=== PATIENT | male | born 1945 | race Caucasian/White ===

== ENCOUNTER → 2017-09-08 | Outpatient (CLI) | payer OTHER, MEDICARE | LOC: BMCIMAGING 15:37 | PROVIDERS: ATTEND Podiatrist Foot & Ankle Surgery | DX: M79.671 Pain in right foot (principal); M25.871 Other specified joint disorders, right ankle and foot; M25.872 Other specified joint disorders, left ankle and foot ==

== ENCOUNTER → 2018-10-18 | Outpatient (CLI) | payer OTHER, MEDICARE | LOC: FIMAGING 10:41 | PROVIDERS: ATTEND Orthopaedic Surgery | DX: Z01.818 Encounter for other preprocedural examination (principal); M17.12 Unilateral primary osteoarthritis, left knee ==

== ENCOUNTER 2018-11-06 08:42 | Observation (INO) | payer OTHER, MEDICARE ==
--- NOTE | 2018-11-06 06:01 | PDIAF ---
- Diagnosis Diagnosis: left knee djd Code Status: Full Code - Medication Management Discharge Medications: electronically signed and located in the Home Medication List. - Orders Services needed: Home Care, Physical Therapy Home Care Face to Face: I certify that this patient was under my care and that I had the required gvzh-fp-[id number] encounter meeting the encounter requirements on the discharge day. My findings support the fact that the patient is homebound as defined in Home Care Face to Face Continued: CMS Chapter 7 Medicare Benefits Manual 30.1.1 , The condition of the patient is such that there exists a normal inability to leave home and consequently, leaving home would require a considerable and taxing effort. Diet Recommendation: no restrictions on diet Diet Texture: Regular Texture Diet Additional Instructions: TOTAL JOINT ARTHROPLASTY DISCHARGE INSTRUCTIONS 1. Your surgeon follows the [facility] protocol for reducing your risk of DVT (blood clots) following surgery. Medication will be ordered to prevent blood clots. A sudden increase in calf pain and/or swelling could indicate a blood clot in your leg. If this occurs, please call your surgeon or his/her camp assistant. An ultrasound of the leg may be necessary to diagnose a blood clot. If you have conditions that make you a higher risk for blood clots, your surgeon may use more aggressive ways to prevent them. Notify your surgeon if you think you are a high risk for blood clots. 2. Wear your white surgical stockings (GIANA hose) for 2 weeks. This decreases your swelling and may help prevent blood clots. It is ok to remove GIANA hose at night time to give your legs a break. 3. Swelling and bruising in the surgical leg is common. If you feel that it is excessive, please notify your surgeon. 4. Elevate your surgical leg with the ankle above the hip several times every day. Please keep the leg straight when you elevate by putting pillows under your foot. Do not put pillows under your knee. This will make being able to fully straighten more difficult. This is uncomfortable, but try to do it as much as possible. 5. For total knee replacements use compressive wrap on your knee for 3-5 days after surgery, then you can discontinue it. 6. Use a walker or crutches for 1-2 weeks. Progress your weight-bearing as tolerated. You may start to use a cane when you feel stable and safe. 7. You will receive physical therapy instructions in the hospital. Continue those exercises at home. There are additional exercises in the total joint booklet you were given before surgery. Outpatient physical therapy will begin 7- 10 days after surgery. Please schedule this in advance. 8. Use ice on your knee at least 3-5 times every day for 30 minutes. This helps reduce pain and swelling. Also use it at night before falling asleep. 9. Leave your surgical dressing in place for 2 weeks. Your dressing is water resistant, but not waterproof. Cover it with Saran Wrap or Oqzbz-q-Vpff before showering. You may shower as soon as you feel safe entering a shower. If you notice bleeding from your incision 2 or 3 days after surgery, please notify your surgeon. 10. Due to narcotics, decreased activity and altered diet, most patients experience constipation after surgery. Use pwjo-fqb-hzuyrys stool softeners while you are on narcotics. 11. You may drive a car when you are comfortable bearing weight, have good muscular control of your leg and are off narcotics. This usually occurs 2-4 weeks after surgery, depending on which leg was operated on. 12. If there are questions not addressed here, please refer the [facility] book given for more information. If you still have questions, please contact your surgeon s office. 13. If you have a life-threatening emergency, please call 911 and go to the emergency room immediately. For non-life threatening emergencies, please call your physicians office for advice before going to the emergency room. - Follow Up Care Current Providers and Referrals: Marlene Mendoza MD [Primary Care Provider] - Mac Fitzpatrick MD [Medical Doctor] -
--- NOTE | 2018-11-06 06:01 | PDHPUP ---
History & Physical Update H&P update statement: This history and physical update is based on an assessment of the patient which was completed after admission or registration (within 24 hours), but prior to the surgery/procedure. H&P update: no change in patient's condition since H&P completed
[~2018-11-06 08:42] MED LIST: ROPIVACAINE 0.2% 80 MG, EPINEPHrine 0.2 MG, KETOROLAC TROMETHAMINE 30 MG in SYRINGE 0 ML IU ONE; TRANEXAMIC ACID 1,000 MG in NS 100 ML IV ONE
[2018-11-06] MEDS ORDERED: FAMOTIDINE 20 MG TAB PO ONE (09:03)
[2018-11-06] MEDS ORDERED: ACETAMINOPHEN 325 MG TAB PO ONE (09:03)
[2018-11-06] MEDS ORDERED: ceFAZolin 2 GM/DEXTROSE 100 ML IV ONE (09:03)
[2018-11-06] MEDS ORDERED: LR 1,000 ML IV ONE (09:03)
[2018-11-06] MEDS ORDERED: LIDOCAINE 1% 2 ML INJ ID PRN (09:03)
[2018-11-06] MEDS ORDERED: CALCIUM CHLORIDE 1 GM/10 ML INJ ONE (09:51)
[2018-11-06] MEDS ORDERED: THROMBIN (BOVINE) 5,000 UNIT VIAL TP ONE (09:51)
[2018-11-06] MEDS ORDERED: ceFAZolin 1 GM/5 ML SYR ONE (09:52)
[2018-11-06] MEDS ORDERED: MIDAZOLAM 2 MG/2 ML VIAL IVP ONE (10:25)
[2018-11-06] MEDS ORDERED: MIDAZOLAM 2 MG/2 ML VIAL ONE (10:26)
--- NOTE | 2018-11-06 10:26 | PDANEPAE ---
ANE Past Medical History - Cardiovascular History Hx Hypertension: No Hx Arrhythmias: No Hx Chest Pain: No Hx Coronary Artery / Peripheral Vascular Disease: No Hx CHF / Valvular Disease: No Hx Palpitations: No - Pulmonary History Hx COPD: No Hx Asthma/Reactive Airway Disease: No Hx Recent Upper Respiratory Infection: No Hx Oxygen in Use at Home: No Hx Sleep Apnea: Yes Sleep Apnea Screening Result - Last Documented: Negative - Neurologic History Hx Cerebrovascular Accident: No Hx Seizures: No Hx Dementia: No - Endocrine History Hx Diabetes: No - Renal History Hx Renal Disorders: No - Liver History Hx Hepatic Disorders: No - Neurological & Psychiatric Hx Hx Neurological and Psychiatric Disorders: No - Cancer History Hx Cancer: No - Congenital Disorder History Hx Congenital Disorders: No - GI History Hx Gastrointestinal Disorders: No - Other Health History Other Health History: none - Chronic Pain History Chronic Pain: Yes (left knee pain) - Surgical History Prior Surgeries: 1974 left knee cartiledge removed. 1963 left ankle surgery in [facility] Review of Systems Review of Systems: - Exercise capacity METS (RN): 4 METS ANE Patient History - Allergies Allergies/Adverse Reactions: morphine Allergy (Verified 11/06/18 09:29) Fever - Home Medications Home Medications: Herbals/Supplements -Info Only 1 ea PO DAILY 11/06/18 [Last Taken Unknown] - NPO status NPO Since - Liquids (Date): 11/06/18 NPO Since - Liquids (Time): 04:30 NPO Since - Solids (Date): 11/06/18 NPO Since - Solids (Time): 04:30 - Smoking Hx Smoking Status: Former smoker - Family Anes Hx Family Hx Anesthesia Complications: none ANE Labs/Vital Signs - Vital Signs Blood Pressure: 137/77 Heart Rate: 65 Respiratory Rate: 18 O2 Sat (%): 93 Height: 172.72 cm Weight: 79.379 kg ANE Physical Exam - Airway Neck exam: FROM Mallampati Score: Class 1 Mouth exam: normal dental/mouth exam - Pulmonary Pulmonary: no respiratory distress - Cardiovascular Cardiovascular: regular rate and rhythym - ASA Status ASA Status: I ANE Anesthesia Plan Anesthesia Plan: GA w LMA, spinal
[2018-11-06] MEDS ORDERED: PROPOFOL/EMULSION 500 MG/50 ML BOTTLE IV ONE (10:34)
[2018-11-06] MEDS ORDERED: BUPIVACAINE/DEXTROSE 7.5MG/ML 2 ML SPINAL AMP SP ONE (10:34)
[2018-11-06] MEDS ORDERED: LIDOCAINE 2% 5 ML SDV ONE (10:34)
[2018-11-06] MEDS ORDERED: fentaNYL 100 MCG/2 ML INJ ONE ×3 (11:30→12:58)
--- NOTE | 2018-11-06 12:29 | POSTOPPROG ---
Post Op Note Date of Operation: 11/06/18 Surgeon: Mac Fitzpatrick Sheet Metal Apprentice: Bipin Anesthesiologist: Monica Anesthesia: Spinal Pre-op Diagnosis: Left knee OA Post-op Diagnosis: Left knee OA Indication: Left knee OA Procedure: Left total knee arthroplasty, BLAS assist Findings: Left knee OA Inf/Abcess present in the surg proc area at time of surgery?: No Depth: Deep Incisional (Fascial) EBL: 100-500
[2018-11-06] MEDS ORDERED: ONDANSETRON 4 MG/2 ML VIAL IVP PRN ×2 (12:37→13:27)
[2018-11-06] MEDS ORDERED: PROMETHAZINE HCL 25 MG SUPPR PR PRN (12:37)
[2018-11-06] MEDS ORDERED: ONDANSETRON DISINTEGRATING 4 MG TAB PO PRN (12:37)
[2018-11-06] MEDS ORDERED: PROMETHAZINE HCL 25 MG/ML INJ IVP PRN (12:37)
[2018-11-06] MEDS ORDERED: DIPHENOXYLATE/ATROPINE LOMOTIL 1 TAB PO PRN (12:37)
[2018-11-06] MEDS ORDERED: LACTULOSE 20 GM/30 ML UDCUP PO PRN (12:37)
[2018-11-06] MEDS ORDERED: diphenhydrAMINE 25 MG CAP PO PRN (12:37)
[2018-11-06] MEDS ORDERED: BISACODYL 10 MG SUPP PR PRN (12:37)
[2018-11-06] MEDS ORDERED: TEMAZEPAM 15 MG CAP PO PRN (12:37)
[2018-11-06] MEDS ORDERED: MAGNESIUM HYDROXIDE 30 ML UDCUP PO PRN (12:37)
[2018-11-06] MEDS ORDERED: POLYETHYLENE GLYCOL 3350 17 GM PKT PO PRN (12:37)
[2018-11-06] MEDS ORDERED: METOCLOPRAMIDE 10 MG/2 ML VIAL IVP PRN (12:37)
[2018-11-06] MEDS: fentaNYL 100 MCG/2 ML INJ IVP PRN ×4 (12:44→13:30)
[2018-11-06] MEDS ORDERED: ROPIVACAINE HCL 150 MG/30 ML INJ ONE (12:45)
[2018-11-06] MEDS ORDERED: LR 1,000 ML IV SCH (13:00)
[2018-11-06] MEDS ORDERED: HYDROmorphONE/DILAUDID 1 MG/ML INJ IVP PRN (13:27)
[2018-11-06] MEDS ORDERED: NALOXONE HCL 0.4 MG/ML INJ IVP PRN (13:27)
--- NOTE | 2018-11-06 13:27 | POSTANESTH ---
Post Anesthetic Evaluation Cardiovascular Status: Normal, Stable Respiratory Status: Normal, Stable Level of Consciousness/Mental Status: Can Participate in Eval Pain Control: Adequate, Prn Tx Ordered Nausea/Vomiting Control: Adequate, Prn Tx Ordered Complications Possibly Related to Anesthesia: None Noted
[2018-11-06] MEDS ORDERED: ceFAZolin 2 GM/DEXTROSE 100 ML IV SCH (14:00)
[2018-11-06] MEDS ORDERED: TRANEXAMIC ACID 650 MG TAB PO SCH (14:00)
[2018-11-06] MEDS: CYCLOBENZAPRINE 10 MG TAB PO PRN (14:23)
[2018-11-06] MEDS: oxyCODONE IR 5 MG TAB PO PRN ×3 (14:23→21:26)
--- NOTE | 2018-11-06 16:03 | SOAPPROG ---
MARCIAL Progress Note Assessment/Plan: Assessment: 73 year old male s/p left TKA -procedure earlier today Doing well x-rays look good Plan: Begin d/c planning- pt hoping to go home tomorrow, will have support of his . He would like home PT Continue oral pain medication Continue VTE ppx - SCDs, GIANA thao, aspirin 325 mg Continue PT/OT efforts - felt a little dizzy during PT, but has resolved Change dressing tomorrow Follow up with Dr. Fitzpatrick in approximately 2 weeks Subjective: Patient states he is doing well, the oxycodone is making the pain tolerable. He is hoping to go tomorrow and will have the support of his family. He would like to get set up with home PT. He denies SOB, CP, fever chills. No major complaints or concerns. Objective: Vital Signs Temp Pulse Resp BP Pulse Ox 36.7 C 73 16 131/72 H 93 11/06/18 15:23 11/06/18 15:23 11/06/18 15:23 11/06/18 15:23 11/06/18 15:23 11/05/18 11/06/18 11/07/18 05:59 05:59 05:59 Intake Total 1100 Output Total 150 Balance 950 Patient resting comfortably in bed, no acute distress. LLE: Wound dressings are clean, dry and intact. Lower leg compartments are soft and nontender. Negative Homans sign bilaterally. He can actively DF and PF his left foot and great toe against resistance. Grossly NVI distally ICD10 Worksheet Patient Problems: Problems Problem Status Onset Unilateral primary osteoarthritis, left knee Acute - ICD10 Problem Qualifiers (1) Unilateral primary osteoarthritis, left knee
[2018-11-06] MEDS: TRANEXAMIC ACID 650 MG TAB PO SCH (18:26)
[2018-11-06] MEDS: ACETAMINOPHEN 325 MG TAB PO SCH (18:26)
[2018-11-06] MEDS: ceFAZolin 2 GM/DEXTROSE 100 ML IV SCH (18:27)
[2018-11-06] MEDS: FAMOTIDINE 20 MG TAB PO SCH (20:59)
[2018-11-06] MEDS: SENNOSIDES/DOCUSATE SODIUM TAB PO SCH (20:59)
[2018-11-06] MEDS: ASPIRIN 325 MG TAB PO SCH (20:59)
[2018-11-07] MEDS: TRANEXAMIC ACID 650 MG TAB PO SCH ×2 (01:40→10:13)
[2018-11-07] MEDS: ACETAMINOPHEN 325 MG TAB PO SCH ×2 (01:41→10:20)
[2018-11-07] MEDS: ceFAZolin 2 GM/DEXTROSE 100 ML IV SCH (01:47)
[2018-11-07] MEDS: oxyCODONE IR 5 MG TAB PO PRN ×2 (01:48→10:20)
[2018-11-07] MEDS: CYCLOBENZAPRINE 10 MG TAB PO PRN (01:48)
--- NOTE | 2018-11-07 06:44 | PDIAF ---
- Diagnosis Diagnosis: left knee djd Code Status: Full Code - Medication Management Discharge Medications: electronically signed and located in the Home Medication List. - Orders Services needed: Home Care, Physical Therapy Home Care Face to Face: I certify that this patient was under my care and that I had the required hbvj-[id number] encounter meeting the encounter requirements on the discharge day. My findings support the fact that the patient is homebound as defined in Home Care Face to Face Continued: CMS Chapter 7 Medicare Benefits Manual 30.1.1 , The condition of the patient is such that there exists a normal inability to leave home and consequently, leaving home would require a considerable and taxing effort. Diet Recommendation: no restrictions on diet Diet Texture: Regular Texture Diet Additional Instructions: TOTAL JOINT ARTHROPLASTY DISCHARGE INSTRUCTIONS 1. Your surgeon follows the [facility] protocol for reducing your risk of DVT (blood clots) following surgery. Medication will be ordered to prevent blood clots. A sudden increase in calf pain and/or swelling could indicate a blood clot in your leg. If this occurs, please call your surgeon or his/her procurement assistant. An ultrasound of the leg may be necessary to diagnose a blood clot. If you have conditions that make you a higher risk for blood clots, your surgeon may use more aggressive ways to prevent them. Notify your surgeon if you think you are a high risk for blood clots. 2. Wear your white surgical stockings (GIANA hose) for 2 weeks. This decreases your swelling and may help prevent blood clots. It is ok to remove GIANA hose at night time to give your legs a break. 3. Swelling and bruising in the surgical leg is common. If you feel that it is excessive, please notify your surgeon. 4. Elevate your surgical leg with the ankle above the hip several times every day. Please keep the leg straight when you elevate by putting pillows under your foot. Do not put pillows under your knee. This will make being able to fully straighten more difficult. This is uncomfortable, but try to do it as much as possible. 5. For total knee replacements use compressive wrap on your knee for 3-5 days after surgery, then you can discontinue it. 6. Use a walker or crutches for 1-2 weeks. Progress your weight-bearing as tolerated. You may start to use a cane when you feel stable and safe. 7. You will receive physical therapy instructions in the hospital. Continue those exercises at home. There are additional exercises in the total joint booklet you were given before surgery. Outpatient physical therapy will begin 7- 10 days after surgery. Please schedule this in advance. 8. Use ice on your knee at least 3-5 times every day for 30 minutes. This helps reduce pain and swelling. Also use it at night before falling asleep. 9. Leave your surgical dressing in place for 2 weeks. Your dressing is water resistant, but not waterproof. Cover it with Saran Wrap or Ppkrn-b-Gqve before showering. You may shower as soon as you feel safe entering a shower. If you notice bleeding from your incision 2 or 3 days after surgery, please notify your surgeon. 10. Due to narcotics, decreased activity and altered diet, most patients experience constipation after surgery. Use fmvc-lkk-kjnzody stool softeners while you are on narcotics. 11. You may drive a car when you are comfortable bearing weight, have good muscular control of your leg and are off narcotics. This usually occurs 2-4 weeks after surgery, depending on which leg was operated on. 12. If there are questions not addressed here, please refer the [facility] book given for more information. If you still have questions, please contact your surgeon s office. 13. If you have a life-threatening emergency, please call 911 and go to the emergency room immediately. For non-life threatening emergencies, please call your physicians office for advice before going to the emergency room. - Follow Up Care Current Providers and Referrals: Marlene Mendoza MD [Primary Care Provider] - Mac Fitzpatrick MD [Medical Doctor] -
--- NOTE | 2018-11-07 06:51 | GOP ---
[f rep st] OPERATIVE REPORT DATE OF OPERATION: SURGEON: Mac Fitzpatrick MD PRECISION MECHANICAL INSTRUMENT MAKER: Rajat Voss, DEWATERING FILTERING SUPERVISOR, FISH ROD MAKER, surgical technologist was medical necessity for the entirety of t he case. PREOPERATIVE DIAGNOSIS: Left knee degenerative joint disease. POSTOPERATIVE DIAGNOSIS: PROCEDURE PERFORMED: Left total knee arthroplasty. FINDINGS: SPECIMENS: Pathology, the bony cuts. DESCRIPTION OF PROCEDURE: The patient was identified in the preanesthesia area. The left knee clear ly demarcated as the operative site with indelible marker. He was given 2 g of Ancef intravenously i n the OR. A spinal anesthetic was placed, followed by additional sedation. The left knee and lower extremity were sterilely prepped and draped in usual fashion. Appropriate time-out procedure was car ried out. The limb was then sterilely prepped and draped in the usual fashion, exsanguinated with an Esmarch bandage. Attention was turned to the anterior aspect of the knee. An anterior midline inci german was made. Thick subcutaneous flaps were elevated, followed by medial parapatellar arthrotomy. Subperiosteal elevation was carried out to the mid coronal plane. The knee was brought to a flexed p osition. There were large medial osteophytes and collapse of the medial joint. Incision was made to proceed with total knee arthroplasty. Two pins were then placed from medial to lateral across the d istal femur and a femoral check point placed. Two pins were then placed in a percutaneous incision o sahil the mid tibia and the tibial reference array affixed, followed by tibial check point. All bony l andmarks were entered into the computer. The marginal osteophytes were withdrawn. Soft tissue relea ses and adjustment of the components were carried out with the MAKOplasty software to balance the thr ough the flexion-extension arc. Resections were then made for a size 4 femur, size 5 tibia. Trial r eduction was carried out and ultimately, a 5 x 10 mm polyethylene spacer allowed full extension, with out hyperextension, flexion to 130 degrees and no instability through the flexion-extension arc. The trial components were withdrawn. The bony surfaces were thoroughly cleansed. The tibial, then femo ral components were impacted into full position and seated. A 5 x 10 mm polyethylene spacer was then placed, confirmed to be fully seated. The patella was then everted, cut in a freehand cutting techn ique. Drill holes were made for a size 38 mm patella and this was press-fit into position. The woun d was copiously irrigated with pulsatile lavage solution. The tissues injected with joint cocktail o f ropivacaine, Toradol and epinephrine. Sterile dressing was applied. The patient was awakened, shane en to recovery room in good, stable condition. DISCHARGE DIAGNOSIS: Left knee degenerative joint disease. HISTORY OF PRESENT ILLNESS: Cruz is a 73-year-old gentleman with end-stage arthritis to his left kn ee. Clinical and radiographic features are consistent with this. He has failed all attempts at cons ervative management. He wished to proceed. Written consent was signed and placed in the patient's c [place]apleton. TOTAL TOURNIQUET TIME: minutes. COMPLICATIONS: None. IMPLANTS: [place] Triathlon posterior stabilized femoral component size 4, size 5 tibial component, X3 tibial bearing insert, 5 x 10 mm, an asymmetric patella, 38 mm. DISPOSITION: To the recovery room, then the floor. He will follow standard recovery. /[id number]/MODL
[2018-11-07] MEDS: ASPIRIN 325 MG TAB PO SCH (10:12)
[2018-11-07] MEDS: SENNOSIDES/DOCUSATE SODIUM TAB PO SCH (10:12)
[2018-11-07] MEDS: FAMOTIDINE 20 MG TAB PO SCH (10:13)
--- NOTE | 2018-11-07 10:33 | SOAPPROG ---
SOAP Progress Note Assessment/Plan: Assessment: 73 year old male s/p left TKA - POD 1 Doing well x-rays look good Plan: Continue d/c planning- patient would like to go home today, will have support of his . He would like home PT Continue oral pain medication - oxycodone, tylenol, flexeril Continue VTE ppx - GIANA hose, aspirin 325 mg (x 6 weeks) Continue PT/OT efforts - needs PT clearance prior to dc Dressing changed this morning Follow up with Dr. Fitzpatrick in approximately 2 weeks Subjective: Patient states he is doing well, pain is tolerable and therapy has been doing well. He is still wanting to go home today. He denies SOB, CP, fever, chills. No major complaints or concerns at this time. Objective: Vital Signs Temp Pulse Resp BP Pulse Ox 36.7 C 58 L 16 122/81 H 95 11/07/18 07:39 11/07/18 07:39 11/07/18 07:39 11/07/18 07:39 11/07/18 07:39 Laboratory Results 11/07/18 04:40 11/06/18 11/07/18 11/08/18 05:59 05:59 05:59 Intake Total 1450 Output Total 1525 Balance -75 - Time Spent With Patient Time Spent With Patient: Patient sitting in his chair, no acute distress. LLE: Wound dressings clean, dry and intact. New Mepilex dressings have been applied. No erythema, purulent drainag or signs of infection. Mild diffuse edema. Lower leg compartments are soft and nontender. Patient can actively DF and PF left foot and great toe against resistance. Grossly NVI distally. ICD10 Worksheet Patient Problems: Problems Problem Status Onset Unilateral primary osteoarthritis, left knee Acute - ICD10 Problem Qualifiers (1) Unilateral primary osteoarthritis, left knee
--- NOTE | 2018-11-07 10:36 | ASMTLACE ---
BALAE Length of stay for Answers: 2 days current admission Acuity / Level of Answers: No Care: Did the patient have an inpatient admission? Comorbidities - select Answers: Opioid dependence all that apply / Chronic pain # of Emergency department Answers: 0 visits in the last 6 months Score: 6 Date Signed: 11/07/2018 10:35 AM Electronically Signed By:ANTONINO Stern
--- NOTE | 2018-11-07 10:38 | ASMTCMCOM ---
CM Note CM Note Notes: Pt medically stable for d/c with [facility] PT. Pt had planned knee surgery, resides with spouse. PT rec outpatient. Pt was pre-arranged with [facility] by MD office, pt does want the home care and is agreeable to [facility]. Referral and orders sent in [employer], [facility] has protocol with MD office. Date Signed: 11/07/2018 10:37 AM Electronically Signed By:ANTONINO Stern
--- NOTE | 2018-11-07 10:41 | PDDCSUM ---
Discharge Summary Discharge Summary: ADMISSION DIAGNOSIS: Left knee severe degenerative arthritis DISCHARGE DIAGNOSIS: Left knee severe degenerative arthritis OPERATION PERFORMED: November 06, 2018 Left total knee arthroplasty, BLAS assist POSTOPERATIVE COMPLICATIONS: None CONDITION ON DISCHARGE: Improved HPI: The patient is a 73 year old male who has end-stage arthritis of the left knee. Clinical and radiographic features are consistent with this. Patient has failed attempts at conservative management, therefore, recommended operative left total knee replacement. DESCRIPTION OF HOSPITAL COURSE: The patient was admitted to the hospital on the morning of surgery and underwent a left total knee arthroplasty. Postoperatively , patient was treated with multimodal DVT prophylaxis, including aspirin 325 mg once daily, SCDs and GIANA hose. Patient was seen by PT and made good progress with ambulation and stairs. On the first post-operative day the patients H&H was 14.0/41.4. Patient was able to void spontaneously. At the time of discharge , patient was afebrile, wound was clean and dry. Patient is walking with a walker. DISPOSITION: The patient is discharged home with home health and may have outpatient PT in the next couple weeks. Patient may progress to full weightbearing on the left lower extremity as tolerated. Aspirin 325 mg once daily for 6 weeks. Patient has prescriptions for oxycodone, flexeril for pain control and muscle spasms, Zofran for nausea and patient may continue OTC Tylenol as needed for pain. The patient will be seen by Dr. Marshall office in approximately 2 weeks. If there are any problems, patient is to call Dr. Fitzpatrick s office.
[2018-11-07 11:35] VITALS: BP 133/77
--- NOTE | 2018-11-07 13:31 | ASDISCHSUM ---
Discharge Information Plan Status:Home with Home Health Medically Cleared to Leave: Discharge Date:11/07/2018 12:36 PM CM D/C Disposition: ADT D/C [facility] Projected Discharge Date:11/07/2018 11:00 AM Transportation at D/C: Discharge Delay Reason: Follow-Up Date:11/07/2018 11:00 AM Discharge Slot: Final Diagnosis: Placement Information Referral Type:*Home Health Care Services Referral ID:[id number] Provider Name:[facility] ([facility]) Address 1:[address] [address] Address 2: City:[place] Selection Factors: State:[place] Patient Contact Information Contact Name:RAIN Relationship: Address:[address] City:[place] Alternate Phone: State/Zip Code:[place] [address] Email: Financial Information Financial Class:Medicare Primary Plan Desc:MEDICARE OUTPATIENT Primary Plan Number:[id number] Secondary Plan Desc:[employer]/MDR SUPPLEMENT Secondary Plan Number:[id number] Assessment Information LACE LACE Length of stay for Answers: 2 days current admission Acuity / Level of Answers: No Care: Did the patient have an inpatient admission? Comorbidities - select Answers: Opioid dependence all that apply / Chronic pain # of Emergency department Answers: 0 visits in the last 6 months Score: 6 Date Signed: 11/07/2018 10:35 AM Electronically Signed By:ANTONINO Stern [facility] CM Progress Note CM Note CM Note Notes: Pt medically stable for d/c with [facility] PT. Pt had planned knee surgery, resides with spouse. PT rec outpatient. Pt was pre-arranged with [facility] by MD office, pt does want the home care and is agreeable to [facility]. Referral and orders sent in [employer], [facility] has protocol with MD office. Date Signed: 11/07/2018 10:37 AM Electronically Signed By:ANTONINO Stern Intervention Information Intervention Type:*Incorrect Registration Date of Service:11/06/2018 12:58 PM Patient Type:Inpatient Staff Member:Megan Medina Hours: Discipline: Severity: Comment:
== END 2018-11-07 12:36 | disposition home health service (06) ==
LOC: F1N 08:42 → INTOOBSV 08:42 → F3N 13:55
PROVIDERS: ADMIT Orthopaedic Surgery; ATTEND Orthopaedic Surgery
DX: M17.12 Unilateral primary osteoarthritis, left knee (principal); I45.10 Unspecified right bundle-branch block; R03.0 Elevated blood-pressure reading, without diagnosis of hypertension; E78.5 Hyperlipidemia, unspecified; G47.30 Sleep apnea, unspecified; Z87.891 Personal history of nicotine dependence; Z82.3 Family history of stroke
CPT/HCPCS: 27447; 73560; 88311; 97116; 97161; 97165; C1776; J0171; J0690; J1885; J2250; J2704; J2795; J3010

== ENCOUNTER → 2018-12-18 | Outpatient (CLI) | payer OTHER, MEDICARE | LOC: BMCIMAGING 10:28 ==